=== PATIENT | male | born 1975 | race Caucasian/White ===

== ENCOUNTER 2017-07-21 13:32 | Emergency (ER) | payer MEDICAID ==
[2017-07-21 14:30] VITALS: BP 111/73
--- NOTE | 2017-07-21 14:39 | ERNOTE ---
Medical Problem HPI - Narrative Date of Service: 07/21/17 - General Chief Complaint: General Assessment Time Seen by Provider: 07/21/17 14:28 Source: patient, family, RN notes reviewed - Immun/Allergies/Home Medications Immunizations: IMMUNIZATION HX Immunizations Up to Date Yes History of Influenza Vaccine No Allergies/Adverse Reactions: Allergies alprazolam [From Xanax] Adverse Reaction (Verified 07/21/17 14:04) aspirin Adverse Reaction (Verified 07/21/17 14:04) Home Medications: HOME MEDICATIONS Venlafaxine HCl [Effexor] 37.5 mg PO DAILY #30 tablet 07/21/17 [Last Taken Unknown] buPROPion HCL [Wellbutrin] 200 mg PO BID #60 tablet 07/21/17 [Last Taken Unknown ] - History of Present History Narrative: bandar is a 42 year old male who presents to the er in need of a medication refill. pt recently moved to [facility] from [place] and has not been able to establish with a pcp. pt is out of his wellbutrin and is almost out of his effexor. denies any suicidial thoughts or ideas. significant other in room, supportive. Timing: constant Severity: mild Modifying Factors - (Improves): Present: medication Modifying Factors - (Worsens): Present: other - not having medication Review of Systems - Review of Systems Constitutional: Present: no symptoms reported EYE: Present: no symptoms reported ENT: Present: no symptoms reported Respiratory: Present: no symptoms reported Cardiology: Present: no symptoms reported Gastrointestinal/Abdominal: Present: no symptoms reported Genitourinary: Present: no symptoms reported Musculoskeletal: Present: no symptoms reported Skin: Present: no symptoms reported Neurological: Present: no symptoms reported Endocrine: Present: no symptoms reported Hematologic/Lymphatic: Present: no symptoms reported Psych: Present: no symptoms reported All Other Systems: All systems neg except as marked - Patient's Past Medical History Patient History - Medical: Anxiety, Depression Patient History - Cardiac/Respiratory: No pertinent hx Patient History - Cancer: No Hx of Cancer Patient History - Surgical Procedures: Orthopedic Patient History - Other: None - Social History Living Situations: home Psych History: Hx of Anxiety, Hx of Depression Smoking Status: Never smoker Alcohol Use: none Drug Use: none - Immunizations Immunizations Up to Date: Yes History of Influenza Vaccine: No Physical Exam - Physical Exam General Appearance: Present: wd/wn, alert, no apparent distress Head Exam: Present: normal inspection, no evidence of injury Eye Exam: Normal inspection: bilateral Ears, Nose, Throat: Present: normal ENT inspection Neck: Present: normal inspection, nontender Respiratory: Present: no respiratory distress, normal breath sounds, no accessory muscle use, chest nontender, lungs clear Cardiovascular/Chest: Present: regular rate, rhythm, no murmur, normal peripheral pulses Gastrointestinal/Abdominal: Present: nontender, nondistended Rectal Exam: Present: deferred Back Exam: Present: normal inspection, normal range of motion Extremity Exam: Present: normal inspection, non-tender Neurological Exam: Present: alert, oriented, normal mood/affect Skin Exam: Present: normal color, warm/dry ED Progress - Vital Signs Vital Signs: Vital Signs 07/21/17 07/21/17 13:56 14:29 Temperature 37.5 C 37.5 C Pulse Rate 81 78 Respiratory 17 17 Rate Blood Pressure 116/68 111/73 O2 Sat by Pulse 99 99 Oximetry - Progress/Reassessment Chief Complaint: General Assessment Progress:: Re-examined Departure Clinical Impression: Anxiety Depression Qualifiers: Depression Type: other depression Qualified Code(s): F32.89 - Other specified depressive episodes - Departure Disposition: Home self-care Condition: Good Instructions: Dysphoria Additional Instructions: keep appointment to establish with primary care provider. Prescriptions: buPROPion HCL [Wellbutrin] 200 mg PO BID #60 tablet Venlafaxine HCl [Effexor] 37.5 mg PO DAILY #30 tablet
== END 2017-07-21 14:40 | disposition home or self-care (01) ==
LOC: ER 13:32
DX: F32.89 Other specified depressive episodes; F41.9 Anxiety disorder, unspecified